=== PATIENT | female | born 1975 | race Hispanic/Latino ===

== ENCOUNTER 2022-01-23 14:32 | Emergency (ER) | payer BC ==
[~2022-01-23] VITALS: Ht 165.1 cm; Wt 88.0 kg
[2022-01-23 14:57] LABS: BASOPHILS % (AUTO) 0.4 % (0.0-5.0); EOSINOPHILS % (AUTO) 1.7 % (0.0-8.0); HEMATOCRIT 40.4 % (36-48); LYMPHOCYTES % (AUTO) 31.9 % (21.0-51.0); MEAN CORPUSCULAR HGB CONC 31.7 g/dL (32.0-36.0); MEAN CORPUSCULAR VOLUME 82.1 fL (79-99); NEUTROPHILS % (AUTO) 56.9 % (40.0-77.0); PLATELET COUNT (AUTO) 268 K/uL (130-400); RED BLOOD CELL COUNT(AUTO) 4.92 MIL/uL (4.00-5.50); RED CELL DISTRIBUTION WIDTH 13.2 % (11.0-15.5); WHITE BLOOD COUNT (AUTO) 8.1 K/uL (4.8-10.8)
[2022-01-23 15:13] LABS: CREATININE 0.6 mg/dL (0.5-1.5); POTASSIUM 3.8 mmol/L (3.5-5.1)
[2022-01-23] MEDS ORDERED: KETOROLAC 15MG/ML VIAL (15MG/ML) ONE (15:18)
[2022-01-23 15:20] LABS: ALBUMIN 3.7 g/dL (3.5-5.0); BILIRUBIN,TOTAL 0.3 mg/dL (0.2-1.0); TOTAL PROTEIN, SERUM 7.8 g/dL (6.0-8.3)
[2022-01-23] MEDS ORDERED: KETOROLAC 15MG/ML VIAL (15MG/ML) IV ONE (15:30)
[2022-01-23] MEDS ORDERED: NAPR500T6 PO (17:16)
[2022-01-23] MEDS ORDERED: CYCL10TA16 PO (17:16)
[2022-01-23 17:41] VITALS: BP 130/82
== END 2022-01-23 17:42 | disposition home or self-care (01) ==
LOC: EDH 14:32
DX: M25.512 Pain in left shoulder (principal); R51.9 Headache, unspecified; E03.9 Hypothyroidism, unspecified; Z79.899 Other long term (current) drug therapy
CPT/HCPCS: 36415; 71045; 80053; 84484 ×2; 84703; 85025; 93005; 96374; 99284; J1885